=== PATIENT | male | born 1985 | race Caucasian/White ===

== ENCOUNTER 2017-01-02 02:45 | Emergency (ER) | payer SELFPAY ==
[2017-01-02 02:52] VITALS: BP 139/78
--- NOTE | 2017-01-02 03:34 | EDM.PDOC ---
ED HPI GENERAL MEDICAL PROBLEM - General Chief Complaint: ENT Problem Stated Complaint: PUG IN RIGHT EAR Time Seen by Provider: 01/02/17 02:54 Source of Information: Reports: Patient, RN Notes Reviewed - History of Present Illness INITIAL COMMENTS - FREE TEXT/NARRATIVE: 31-year-old male comes in with sensation of a bug in his right ear. This awakened him from his sleep a short time ago. This Is very painful and irritating especially when the bug moves around deeper in his ear canal. He was not having any symptoms of this nature when he did go to sleep earlier this past evening - Related Data Allergies Allergy/AdvReac Type Severity Reaction Status Date / Time No Known Allergies Allergy Verified 01/02/17 02:50 Home Meds: Home Meds . [No Known Home Meds] 01/02/17 [History] Past Medical History Other HEENT History: tonsillectomy Other Cardiovascular History: WPW syndrome with ablation x 2. - Past Surgical History HEENT Surgical History: Reports: Tonsillectomy Social & Family History - Tobacco Use Smoking Status *Q: Never Smoker Second Hand Smoke Exposure: No - Caffeine Use Caffeine Use: Reports: None - Recreational Drug Use Recreational Drug Use: No Drug Use in Last 12 Months: No - Living Situation & Occupation Occupation: Employed ED ROS ENT - Review of Systems Review Of Systems: See Below Constitutional: Reports: No Symptoms HEENT: Reports: Ear Pain (Right ear) Respiratory: Reports: No Symptoms Cardiovascular: Reports: No Symptoms GI/Abdominal: Reports: No Symptoms Musculoskeletal: Reports: No Symptoms Skin: Reports: No Symptoms Neurological: Reports: No Symptoms ED EXAM, ENT - Physical Exam Exam: See Below Exam Limited By: Uncooperative General Appearance: Moderate Distress Ears: Normal External Exam, Canal Foreign Body (There are parts of a bug intermittently visible deep in the right ear canal) Nose: Normal Inspection Head: Atraumatic Neck: Supple Respiratory/Chest: No Respiratory Distress Neurological: Alert, Oriented, No Motor/Sensory Deficits Course - Vital Signs Last Recorded V/S: Last Vital Signs Temp 96.8 F 01/02/17 02:50 Pulse 69 01/02/17 02:50 Resp 18 01/02/17 02:50 BP 139/78 01/02/17 02:50 Pulse Ox 100 01/02/17 02:50 - Re-Assessments/Exams Free Text/Narrative Re-Assessment/Exam: 01/02/17 02:00. Procedure: Foreign body removal R ear canal: attempts were made to grab the bug with a forceps but with each attempt to grab it it would scoot deeper into the ear canal. Using a lighted ear curette I was able to get behind the bug and scoop it out without difficulty after waiting for it to come toward the outer canal. Large long 1 cm beetle type insect but removed alive, entirely from ear canal without major difficulty. Patient tolerated this relative well. Departure - Departure Time of Disposition: 03:33 Disposition: Home, Self-Care 01 Condition: Fair Clinical Impression: Foreign body in ear Qualifiers: Encounter type: initial encounter Laterality: right Qualified Code(s): T16.1XXA - Foreign body in right ear, initial encounter - Discharge Information Referrals: PCP,None [Primary Care Provider] - Forms: ED Department Discharge Additional Instructions: The bug has been safely removed, tylenol if needed for any further discomfort, you have some ear wax but no further foreign body visible
== END 2017-01-02 03:37 | disposition home or self-care (01) ==
LOC: JD.ED 02:45
DX: T16.1XXA Foreign body in right ear, initial encounter (principal); Z98.890 Other specified postprocedural states; X58.XXXA Exposure to other specified factors, initial encounter
CPT/HCPCS: 69200; 99282; 99283-25